=== PATIENT | male | born 1995 | race Caucasian/White ===

== ENCOUNTER → 2018-01-03 | Outpatient (CLI) | payer OTHER ==
[2018-01-03 07:30] LABS: COLLECTION METHOD DRY COLLECTION; SPECIMEN CONTAINER POLYPROPYLENE CUP; SPERM MORPHOLOGY SENT TO REFERENC LAB
[2018-01-03 08:13] LABS: COLLECTION SITE OFF-SITE; DAYS ABSTINENT 3 DAYS (2-7); ROUND CELL CONC. 4.6 X10^6/mL (<5.1); SA DILUTION FACTOR 2; SA NONMOTILE CONCENTRATION 6.2 X10^6/mL; SA NONMOTILE COUNT1 57; SA NONMOTILE COUNT2 66; SA ROUND CELL COUNT1 43; SA ROUND CELL COUNT2 49; SEMEN TESTING TIME 740
[2018-01-03 08:22] LABS: SA DILUTION CNT 1 109; SA DILUTION CNT 2 102; SA SPERM MOTILE CONC 14.9 X10^6mL; SPERM CONCENTRATION 21.1 X10^6/mL (>12.0); TOTAL SPERM COUNT 78.1 X10^6 (>33.0)
[2018-01-03 08:23] LABS: SPERM PROGRESSION 3
== END ==
LOC: LAB 07:08
PROVIDERS: ATTEND Specialist
DX: N46.9 Male infertility, unspecified (principal)
CPT/HCPCS: 89320